=== PATIENT | male | born 1995 | race Caucasian/White ===

== ENCOUNTER 2021-01-11 20:39 | Emergency (ER) | payer SELFPAY ==
[~2021-01-11 20:39] MED LIST: CLEOCIN HCL300 MG PO; MAXITROL EYE DRO5 ML EYERT
[2021-01-12] MEDS ORDERED: TESSALON PERLE100 MG PO (18:42)
[2021-01-12] MEDS ORDERED: MEDROL4 MG PO (18:42)
[2021-01-12] MEDS ORDERED: ZITHROMAX250 MG PO (18:42)
== END 2021-01-11 21:15 | disposition left against medical advice (07) ==
LOC: ER1 20:39
DX: Z53.21 Procedure and treatment not carried out due to patient leaving prior to being seen by health care provider (principal)

== ENCOUNTER 2021-01-12 14:37 | Emergency (ER) | payer OTHER ==
[2021-01-12 17:47] LABS: HEMOGLOBIN 15.4 gm/dl (14.0-17.5); RED BLOOD COUNT 5.68 M/UL (4.20-5.50); WHITE BLOOD COUNT 7.1 K/UL (4.5-11.0)
[2021-01-12 18:25] LABS: BUN/CREATININE RATIO 16 (0-10)
[2021-01-12] MEDS ORDERED: TESSALON PERLE100 MG PO (18:42)
[2021-01-12] MEDS ORDERED: ZITHROMAX250 MG PO (18:42)
[2021-01-12] MEDS ORDERED: MEDROL4 MG PO (18:42)
== END 2021-01-12 19:05 | disposition home or self-care (01) ==
LOC: ER1 14:37
PROVIDERS: Physician Assistant Medical
DX: U07.1 COVID-19 (principal)
CPT/HCPCS: 0240U; 71045; 80053; 81001; 85025; 99283